=== PATIENT | male | born 1950 | race Caucasian/White ===

== ENCOUNTER 2017-04-14 06:29 | Day surgery (SDC) | payer MEDICARE, OTHER ==
[~2017-04-14] VITALS: Ht 175.3 cm; Wt 116.6 kg
[~2017-04-14 06:29] MED LIST: Aspir 8181 MG PO; BACL20 PO; CENTRUM MEN'S1 EACH PO; CETI5 PO; CYAN500 PO; DULO30 PO; DULO60 PO; GABA300 PO; HYDMOR4 PO; Hair, Skin & N1 EACH PO; PANT40 PO; SIMV10 PO; TRAZ150T57 PO
[2017-04-14] MEDS ORDERED: MELO7.5 PO (07:11)
== END 2017-04-14 09:11 | disposition home or self-care (01) ==
LOC: ORSCMMR 06:29
PROVIDERS: Surgery
PROC: 0DB58ZX Excision of Esophagus, Via Natural or Artificial Opening Endoscopic, Diagnostic (ICD-10-PCS; principal; 2017-04-14 08:15)
DX: K21.9 Gastro-esophageal reflux disease without esophagitis (principal); K22.70 Barrett's esophagus without dysplasia; G47.33 Obstructive sleep apnea (adult) (pediatric); I34.1 Nonrheumatic mitral (valve) prolapse; Z86.73 Personal history of transient ischemic attack (TIA), and cerebral infarction without residual deficits; E66.01 Morbid (severe) obesity due to excess calories; Z68.37 Body mass index [BMI] 37.0-37.9, adult; Z79.899 Other long term (current) drug therapy; Z79.82 Long term (current) use of aspirin
CPT/HCPCS: 88305; J2250; J7120